=== PATIENT | male | born 1955 | race Caucasian/White ===

== ENCOUNTER 2020-07-28 10:13 | Observation (INO) ==
[2020-07-28 11:42] LABS: Basophils # 0.1 10*3/uL (0.0-0.2); Basophils % 0.8 % (0.0-0.8); Eosinophils # 0.2 10*3/uL (0.0-0.87); Eosinophils % 2.6 % (0.00-10.9); Hematocrit 43.4 VOL% (42.0-52.0); Hemoglobin 14.2 GM/DL (14.0-18.0); Immature Granulocytes % 0.4 %; Immature Granulocytes Absolute 0.03 #; Lymphocytes # 2.3 10*3/uL (1.4-4.0); Lymphocytes % 29.9 % (21.2-54.2); Mean Corpuscular HGB Conc 32.7 GM/DL (32-36); Mean Corpuscular Volume 88.2 FL (87-102); Mean Platelet Volume 10.5 FL (9.6-12.0); Monocytes % 6.8 % (1.7-12.7); Neutrophils % 59.5 % (38.7-73.9); Platelet Count 289 T/CUMM (130-400); Red Blood Count 4.92 MC/CUMM (3.8-5.5); Red Cell Distribution Width 13.1 % (9.3-17.3); White Blood Count 7.7 T/CUMM (4-12)
[2020-07-28 11:57] LABS: Albumin 3.6 G/DL (3.4-5.0); Bilirubin,Total 0.6 MG/DL (0.2-1.0); Calcium 8.7 MG/DL (8.5-10.1); Osmolality,Calculated 282.3 MOS/KG (273-304); Potassium 3.9 MMOL/L (3.5-5.1); Total Protein 7.3 G/DL (6.4-8.2)
[2020-07-28] MEDS ORDERED: SODIUM CHLORIDE 0.9% 1,000 ML IV STA (12:03)
[2020-07-28 12:13] LABS: Thyroid Stimulating Hormone 0.963 uIU/ml (0.358-3.74)
[2020-07-28 12:27] LABS: Bilirubin,Urine Negative (Negative); Blood, Urine Negative (Negative); Glucose,Urine (UA) Negative (Negative); Hyaline Casts,Urine 4 /LPF (0-3); Ketones,Urine Negative (Negative); Mucus,Urine Occasional /LPF (Occasional); Nitrite,Urine Negative (Negative); Protein,Urine Negative; RBC,Urine <1 /HPF (0-4); Urine Appearance CLEAR (Clear); Urine Color Yellow (Yellow); Urine Specific Gravity 1.013 (1.001-1.035); Urine Urobilinogen < 2.0 EU/DL (0.2-1.0)
[2020-07-28 12:31] LABS: Barbiturates Screen,Urine Negative (Negative); Benzodiazepines Screen,Urine Negative (Negative); Cannabinoid Screen,Urine Negative (Negative); Opiate Screen,Urine Negative (Negative); Phencyclidine Screen,Urine Negative (Negative)
[2020-07-28] MEDS ORDERED: DEXTROSE 50% 25 GM/50 ML VIAL IV PRN (13:44)
[2020-07-28] MEDS ORDERED: GLUCAGON 1 MG VIAL IM PRN (13:44)
[2020-07-28] MEDS: PANTOPRAZOLE 40 MG TABLET PO SCH (23:42)
[2020-07-29 05:05] LABS: Basophils # 0.1 10*3/uL (0.0-0.2); Basophils % 0.6 % (0.0-0.8); Eosinophils # 0.2 10*3/uL (0.0-0.87); Hematocrit 42.7 VOL% (42.0-52.0); Hemoglobin 13.6 GM/DL (14.0-18.0); Immature Granulocytes % 0.2 %; Immature Granulocytes Absolute 0.02 #; Lymphocytes # 2.7 10*3/uL (1.4-4.0); Mean Corpuscular HGB Conc 31.9 GM/DL (32-36); Mean Corpuscular Volume 88.8 FL (87-102); Mean Platelet Volume 10.3 FL (9.6-12.0); Monocytes % 8.1 % (1.7-12.7); Neutrophils % 55.1 % (38.7-73.9); Platelet Count 272 T/CUMM (130-400); Red Blood Count 4.81 MC/CUMM (3.8-5.5); Red Cell Distribution Width 12.9 % (9.3-17.3); White Blood Count 8.1 T/CUMM (4-12)
[2020-07-29 05:28] LABS: Albumin 3.3 G/DL (3.4-5.0); Bilirubin,Total 0.6 MG/DL (0.2-1.0); Calcium 8.8 MG/DL (8.5-10.1); Potassium 3.9 MMOL/L (3.5-5.1); Risk Ratio 2.85; Total Protein 6.7 G/DL (6.4-8.2); VLDL CHOLESTEROL 18.6 MG/DL
[2020-07-29] MEDS: MULTIVITAMIN (CENTRUM) TABLET PO SCH (08:19)
[2020-07-29] MEDS: DULoxetine 30 MG CAPSULE PO SCH (08:19)
[2020-07-29] MEDS: LOSARTAN 50 MG TABLET PO SCH (08:19)
[2020-07-29] MEDS: ASPIRIN EC 81 MG TABLET PO SCH (08:19)
[2020-07-29] MEDS: amLODIPine 5 MG TABLET PO SCH (08:19)
[2020-07-29] MEDS: PANTOPRAZOLE 40 MG TABLET PO SCH ×2 (08:19→21:04)
[2020-07-29] MEDS: ENOXAPARIN 40 MG/0.4 ML SYRINGE SUBCUT SCH (08:21)
[2020-07-29] MEDS ORDERED: ACETAMINOPHEN 325 MG TABLET PO PRN (20:48)
[2020-07-30] MEDS: DULoxetine 30 MG CAPSULE PO SCH (08:48)
[2020-07-30] MEDS: MULTIVITAMIN (CENTRUM) TABLET PO SCH (08:48)
[2020-07-30] MEDS: amLODIPine 5 MG TABLET PO SCH (08:48)
[2020-07-30] MEDS: ASPIRIN EC 81 MG TABLET PO SCH (08:48)
[2020-07-30] MEDS: PANTOPRAZOLE 40 MG TABLET PO SCH (08:48)
[2020-07-30] MEDS: ENOXAPARIN 40 MG/0.4 ML SYRINGE SUBCUT SCH (08:48)
[2020-07-30] MEDS: LOSARTAN 50 MG TABLET PO SCH (08:48)
[2020-07-30 11:45] VITALS: BP 129/74
== END 2020-07-30 16:40 | disposition home or self-care (01) ==
LOC: N.ED 10:13 → N.EDINP 10:13 → N.TELEN 07-29 00:14
PROVIDERS: ADMIT Internal Medicine; ATTEND Internal Medicine